=== PATIENT | female | born 1990 | race Asian ===

== ENCOUNTER 2023-07-13 00:24 | Emergency (ER) | payer OTHER ==
[~2023-07-13] VITALS: Ht 160 cm; Wt 57.0 kg
[2023-07-13] MEDS ORDERED: METH4TAB3 PO (01:04)
[2023-07-13] MEDS ORDERED: DIPH25CA85 PO (01:04)
[2023-07-13] MEDS ORDERED: CETI-450 PO (01:04)
[2023-07-13] MEDS ORDERED: FAMOTIDINE 20 MG TABLET PO ONE (01:15)
[2023-07-13] MEDS ORDERED: CETIRIZINE HCL 10 MG TABLET PO ONE (01:15)
[2023-07-13] MEDS ORDERED: DEXAMETHASONE SOD PHOS 4 MG/ML 5 ML VIAL IM ONE (01:15)
[2023-07-13] MEDS ORDERED: DiphenhydrAMINE HCL 25 MG CAPSULE PO ONE (01:15)
[2023-07-13 01:57] VITALS: BP 129/70; PULSE 75; RESP 20; TEMP 97.3
== END 2023-07-13 02:05 | disposition home or self-care (01) ==
LOC: EMS 00:24
DX: L50.0 Allergic urticaria (principal); Z90.49 Acquired absence of other specified parts of digestive tract
CPT/HCPCS: 99284; 96372; J1100